=== PATIENT | male | born 1965 | race Hispanic/Latino ===

== ENCOUNTER 2017-11-14 10:29 | Emergency (ER) | payer BC ==
[~2017-11-14] VITALS: Ht 177.8 cm; Wt 71.1 kg
[2017-11-14] MEDS ORDERED: TAMIFLU75 MG PO (14:28)
[2017-11-14 14:53] VITALS: BP 116/62
== END 2017-11-14 14:54 | disposition home or self-care (01) ==
LOC: EME 10:29
DX: B34.9 Viral infection, unspecified (principal)
CPT/HCPCS: 71046; 87651 90; 99281; 99284